=== PATIENT | female | born 2000 | race Caucasian/White ===

== ENCOUNTER 2018-06-22 08:26 | Inpatient (IN) | payer OTHER ==
[2018-06-22] MEDS ORDERED: MISOPROSTOL 200 MCG TAB PR (08:30)
[2018-06-22] MEDS ORDERED: BUTORPHANOL 2 MG INJ IV (08:30)
[2018-06-22] MEDS ORDERED: LIDOCAINE 1% (MPF) 30 ML INJ INJ (08:30)
[2018-06-22] MEDS ORDERED: CARBOPROST 250 MCG INJ IM (08:30)
[2018-06-22] MEDS ORDERED: BUTORPHANOL 1 MG INJ IV (08:30)
[2018-06-22] MEDS ORDERED: AMPICILLIN 2 GM/NS (PMX) 100 ML (08:36)
[2018-06-22] MEDS ORDERED: LIDOCAINE 0.5% (SDV) 50 ML INJ (08:37)
[2018-06-22] MEDS: METHYLERGONOVINE 0.2 MG INJ IM (09:47)
[2018-06-22] MEDS: OXYTOCIN 30 UNITS/LR 500 ML IV ×3 (09:52→11:50)
[2018-06-22] MEDS: LACTATED RINGER'S 1,000 ML IV* ×2 (09:55→16:30)
[2018-06-22] MEDS: IBUPROFEN 600 MG TAB PO ×4 (10:39→23:32)
[2018-06-22 10:59] LABS: ADD MAN DIFF? NO
[2018-06-22 11:00] LABS: BASOPHILS % 0.6 % (0.0-2.0); HEMATOCRIT 30.4 % (37.0-47.0); HEMOGLOBIN 9.1 g/dl (12.0-16.0); LYMPHOCYTES # 0.9 10^3/ul (0.8-2.9); LYMPHOCYTES % 18.3 % (18.0-55.0); MEAN CORPUSCULAR HEMOGLOBIN 21.6 pg (29.0-33.0); MEAN CORPUSCULAR HGB CONC 29.9 g/dl (32.0-37.0); MEAN CORPUSCULAR VOLUME 72.2 fl (72.0-104.0); MEAN PLATELET VOLUME 9.8 fl (7.4-10.4); MONOCYTE # 0.5 10^3/ul (0.3-0.9); MONOCYTES % 9.7 % (0.0-13.0); NEUTROPHIL # 3.5 10^3/ul (1.6-7.5); NEUTROPHILS % 70.4 % (30.0-74.0); PLATELET COUNT 355 10^3/UL (140-415); RED BLOOD COUNT 4.21 10^6/ul (4.20-5.40); RED CELL DISTRIBUTION WIDTH 19.9 % (11.5-14.5)
[2018-06-22 11:07] LABS: POSITIVE DIFF @See below
[2018-06-22 11:19] LABS: ALANINE AMINOTRANSFERASE 21 IU/L (13-69); ALBUMIN 2.6 g/dl (3.3-4.9); ALBUMIN/GLOBULIN RATIO 0.81; ALKALINE PHOSPHATASE 276 IU/L (42-121); ANION GAP 10 (8-16); ASPARTATE AMINO TRANSFERASE 22 IU/L (15-46); BILIRUBIN,INDIRECT 0.1 mg/dl (0-1.1); BILIRUBIN,TOTAL 0.1 mg/dl (0.2-1.3); BLOOD UREA NITROGEN 6 mg/dl (7-20); CALCIUM 8.9 mg/dl (8.4-10.2); CARBON DIOXIDE 25 mmol/L (21-31); CHLORIDE 104 mmol/L (97-110); CREATININE 0.37 mg/dl (0.44-1.00); GLUCOSE 113 mg/dl (70-220); POTASSIUM 4.3 mmol/L (3.5-5.1); SODIUM 135 mmol/L (135-144); TOTAL PROTEIN 5.8 g/dl (6.1-8.1); URIC ACID 4.4 mg/dl (3.1-7.9)
[2018-06-22 11:21] LABS: INR 0.93; PROTIME 12.6 Sec (11.9-14.9)
[2018-06-22 11:22] LABS: PARTIAL THROMBOPLASTIN TIME 27.8 Sec (23.0-35.0)
[2018-06-22] MEDS ORDERED: OXYCODONE/ASPIRIN (4.88/325) TAB PO ×2 (12:00)
[2018-06-22] MEDS ORDERED: ONDANSETRON 4 MG INJ IV (12:00)
[2018-06-22] MEDS ORDERED: HYDROCODONE/APAP (5/325) TAB PO ×2 (12:00)
[2018-06-22] MEDS ORDERED: AMPICILLIN 1 GM/NS (PMX) 50 ML IV (12:30)
[2018-06-22 12:49] LABS: HEPATITIS B SURFACE ANTIGEN NEGATIVE (NEGATIVE)
[2018-06-22] MEDS: AMPICILLIN 2 GM/NS (PMX) 100 ML IV (13:01)
[2018-06-22] MEDS: AMPICILLIN/SULB 3 GM/NS (PMX) 100 ML IVPB ×2 (13:06→18:26)
[2018-06-22 14:20] LABS: ADD UMIC YES; UR ASCORBIC ACID NEGATIVE (NEGATIVE); UR BACTERIA FEW /HPF (NONE SEEN); UR BILIRUBIN (Dip) NEGATIVE (NEGATIVE); UR BLOOD (Dip) 3+ mg/dL (NEGATIVE); UR CLARITY CLOUDY (CLEAR); UR COLOR RED (YELLOW); UR GLUCOSE (Dip) NEGATIVE (NEGATIVE); UR KETONES (Dip) TRACE mg/dL (NEGATIVE); UR LEUKOCYTE ESTERASE (Dip) NEGATIVE Leu/ul (NEGATIVE); UR NITRITE (Dip) NEGATIVE (NEGATIVE); UR RBC > 182 /HPF (0-5); UR SPECIFIC GRAVITY (Dip) 1.016 (1.003-1.030); UR TOTAL PROTEIN (Dip) 2+ mg/dl (NEGATIVE); UR UROBILINOGEN (Dip) NEGATIVE (NEGATIVE); UR WBC > 182 /HPF (0-5)
[2018-06-22 16:30] LABS: RAPID PLASMA REAGIN NONREACTIVE (NR)
[2018-06-22] MEDS: DIBUCAINE 1% 30 GM OINT PR (17:35)
[2018-06-22] MEDS: WITCH HAZEL/GLYCERIN PAD PR (17:35)
[2018-06-22] MEDS: LANOLIN 7 GM TUBE TOP (17:35)
[2018-06-22] MEDS: BENZOCAINE 20% 56 ML SPRAY TOP (17:35)
[2018-06-22] MEDS: SENNA/DOCUSATE NA (8.6MG/50MG) TAB PO (22:01)
[2018-06-23] MEDS: AMPICILLIN/SULB 3 GM/NS (PMX) 100 ML IVPB ×5 (00:48→23:28)
[2018-06-23] MEDS: IBUPROFEN 600 MG TAB PO ×4 (05:42→23:28)
[2018-06-23] MEDS: LACTATED RINGER'S 1,000 ML IV* ×3 (07:24→09:55)
[2018-06-23 08:29] LABS: ADD MAN DIFF? NO
[2018-06-23 08:34] LABS: ABNORMAL IP MESSAGE 1; BASOPHILS % 0.7 % (0.0-2.0); EOSINOPHILS % 0.7 % (0.0-7.0); HEMATOCRIT 21.4 % (37.0-47.0); LYMPHOCYTES # 1.2 10^3/ul (0.8-2.9); LYMPHOCYTES % 43.8 % (18.0-55.0); MEAN CORPUSCULAR HEMOGLOBIN 21.5 pg (29.0-33.0); MEAN CORPUSCULAR HGB CONC 29.4 g/dl (32.0-37.0); MEAN PLATELET VOLUME 10.4 fl (7.4-10.4); MONOCYTE # 0.6 10^3/ul (0.3-0.9); MONOCYTES % 20.8 % (0.0-13.0); NEUTROPHIL # 0.9 10^3/ul (1.6-7.5); NEUTROPHILS % 32.9 % (30.0-74.0); NUCLEATED RED BLOOD CELLS% 0.7 /100WBC (0.0-0.0); PLATELET COUNT 259 10^3/UL (140-415); RED BLOOD COUNT 2.93 10^6/ul (4.20-5.40); RED CELL DISTRIBUTION WIDTH 20.1 % (11.5-14.5)
[2018-06-23 08:34] LABS: WHITE BLOOD COUNT 2.8 10^3/ul (4.8-10.8)
[2018-06-23 08:46] LABS: POSITIVE DIFF @See below
[2018-06-23 08:49] LABS: HEMOGLOBIN 6.3 g/dl (12.0-16.0)
[2018-06-23 09:39] LABS: ANISOCYTOSIS 3+ (0-0); BAND NEUTROPHILS #M 0.2 10^3/ul (0.0-0.6); BAND NEUTROPHILS % (M) 9 % (0-10); EOSINOPHILS % (M) 2 % (0-7); GIANT THROMBO% (M) 1 % (0-0); LYMPHOCYTES #M 1.3 10^3/ul (0.8-2.9); LYMPHOCYTES % (M) 48 % (18-55); MICROCYTOSIS 3+ (0-0); MONOCYTE #M 0.5 10^3/ul (0.3-0.9); MONOCYTES % (M) 18 % (0-13); PLATELET ESTIMATE NORMAL; POLYCHROMASIA 1+ (0-0); SEG NEUT #M 0.6 10^3/ul (1.6-7.5); SEGMENTED NEUTROPHILS (M) % 23 % (30-74); SMUDGE%M 38 % (0-0)
[2018-06-23] MEDS: SENNA/DOCUSATE NA (8.6MG/50MG) TAB PO ×2 (09:55→21:57)
[2018-06-23] MEDS: HETASTARCH 6% NACL 500 ML BAG IV* (13:06)
[2018-06-23 13:19] LABS: LACTIC ACID 1.7 mmol/L (0.5-2.0)
[2018-06-23] MEDS: SOD CHLORIDE 0.9% 1,000 ML IV ×2 (14:13→21:00)
[2018-06-23 18:38] LABS: WHITE BLOOD COUNT 2.4 10^3/ul (4.8-10.8)
[2018-06-23 18:38] LABS: ABNORMAL IP MESSAGE 1; HEMATOCRIT 19.7 % (37.0-47.0); MEAN CORPUSCULAR HEMOGLOBIN 21.8 pg (29.0-33.0); MEAN CORPUSCULAR HGB CONC 29.4 g/dl (32.0-37.0); MEAN CORPUSCULAR VOLUME 74.1 fl (72.0-104.0); MEAN PLATELET VOLUME 9.8 fl (7.4-10.4); NUCLEATED RED BLOOD CELLS% 1.2 /100WBC (0.0-0.0); PLATELET COUNT 243 10^3/UL (140-415); RED BLOOD COUNT 2.66 10^6/ul (4.20-5.40); RED CELL DISTRIBUTION WIDTH 19.9 % (11.5-14.5)
[2018-06-23 18:45] LABS: POSITIVE DIFF @See below
[2018-06-23 18:47] LABS: HEMOGLOBIN 5.8 g/dl (12.0-16.0)
[2018-06-23 18:48] LABS: ADD MAN DIFF? YES
[2018-06-23 19:25] LABS: ANISOCYTOSIS 2+ (0-0); BAND NEUTROPHILS #M 0.2 10^3/ul (0.0-0.6); BAND NEUTROPHILS % (M) 10 % (0-10); EOSINOPHILS % (M) 1 % (0-7); ERYTHROBLAST% (NRBC) (M) 1 % (0-0); LYMPHOCYTES #M 1.3 10^3/ul (0.8-2.9); LYMPHOCYTES % (M) 57 % (18-55); MICROCYTOSIS 2+ (0-0); MONOCYTE #M 0.2 10^3/ul (0.3-0.9); MONOCYTES % (M) 10 % (0-13); PLATELET ESTIMATE NORMAL; POIKILOCYTOSIS 1+ (0-0); POLYCHROMASIA 2+ (0-0); SEG NEUT #M 0.5 10^3/ul (1.6-7.5); SEGMENTED NEUTROPHILS (M) % 21 % (30-74); SMUDGE%M 21 % (0-0)
[2018-06-23] MEDS: ACETAMINOPHEN 325 MG TAB PO (21:57)
[2018-06-24] MEDS: LACTATED RINGER'S 1,000 ML IV* ×3 (00:30→16:30)
[2018-06-24 00:42] LABS: IMMEDIATE SPIN CROSSMATCH 1 1
[2018-06-24] MEDS: SOD CHLORIDE 0.9% 1,000 ML IV ×2 (05:00→13:00)
[2018-06-24] MEDS: AMPICILLIN/SULB 3 GM/NS (PMX) 100 ML IVPB ×3 (05:27→17:46)
[2018-06-24] MEDS: IBUPROFEN 600 MG TAB PO ×3 (05:27→17:46)
[2018-06-24 07:18] LABS: ADD MAN DIFF? NO
[2018-06-24 07:22] LABS: WHITE BLOOD COUNT 2.7 10^3/ul (4.8-10.8)
[2018-06-24 07:22] LABS: ABNORMAL IP MESSAGE 1; BASOPHILS % 1.1 % (0.0-2.0); EOSINOPHILS # 0.1 10^3/ul (0.0-0.5); EOSINOPHILS % 1.9 % (0.0-7.0); HEMATOCRIT 25.4 % (37.0-47.0); HEMOGLOBIN 7.8 g/dl (12.0-16.0); LYMPHOCYTES # 1.2 10^3/ul (0.8-2.9); LYMPHOCYTES % 44.1 % (18.0-55.0); MEAN CORPUSCULAR HEMOGLOBIN 23.6 pg (29.0-33.0); MEAN CORPUSCULAR HGB CONC 30.7 g/dl (32.0-37.0); MONOCYTE # 0.4 10^3/ul (0.3-0.9); MONOCYTES % 15.6 % (0.0-13.0); NEUTROPHIL # 0.9 10^3/ul (1.6-7.5); NEUTROPHILS % 33.2 % (30.0-74.0); NUCLEATED RED BLOOD CELLS # 0.1 10^3/ul (0.0-0.0); NUCLEATED RED BLOOD CELLS% 1.9 /100WBC (0.0-0.0); PLATELET COUNT 240 10^3/UL (140-415); RED CELL DISTRIBUTION WIDTH 21.2 % (11.5-14.5)
[2018-06-24 07:33] LABS: POSITIVE DIFF @See below
[2018-06-24] MEDS: MEASLES,MUMPS,RUBELLA VACCINE INJ SC* (07:47)
[2018-06-24] MEDS: SENNA/DOCUSATE NA (8.6MG/50MG) TAB PO ×2 (08:52→20:19)
[2018-06-25] MEDS: AMPICILLIN/SULB 3 GM/NS (PMX) 100 ML IVPB ×4 (00:15→17:47)
[2018-06-25] MEDS: IBUPROFEN 600 MG TAB PO ×4 (00:15→17:47)
[2018-06-25 08:23] LABS: ADD MAN DIFF? NO
[2018-06-25 08:25] LABS: WHITE BLOOD COUNT 2.4 10^3/ul (4.8-10.8)
[2018-06-25 08:25] LABS: ABNORMAL IP MESSAGE 1; BASOPHIL # 0.1 10^3/ul (0.0-0.1); BASOPHILS % 2.1 % (0.0-2.0); EOSINOPHILS # 0.1 10^3/ul (0.0-0.5); EOSINOPHILS % 2.1 % (0.0-7.0); HEMATOCRIT 26.6 % (37.0-47.0); HEMOGLOBIN 8.1 g/dl (12.0-16.0); LYMPHOCYTES # 1.1 10^3/ul (0.8-2.9); LYMPHOCYTES % 46.9 % (18.0-55.0); MEAN CORPUSCULAR HEMOGLOBIN 23.8 pg (29.0-33.0); MEAN CORPUSCULAR HGB CONC 30.5 g/dl (32.0-37.0); MEAN PLATELET VOLUME 9.4 fl (7.4-10.4); MONOCYTE # 0.4 10^3/ul (0.3-0.9); MONOCYTES % 16.9 % (0.0-13.0); NEUTROPHIL # 0.7 10^3/ul (1.6-7.5); NEUTROPHILS % 27.1 % (30.0-74.0); NUCLEATED RED BLOOD CELLS% 1.2 /100WBC (0.0-0.0); PLATELET COUNT 275 10^3/UL (140-415); RED BLOOD COUNT 3.41 10^6/ul (4.20-5.40); RED CELL DISTRIBUTION WIDTH 21.1 % (11.5-14.5)
[2018-06-25 08:26] LABS: POSITIVE DIFF @See below
[2018-06-25] MEDS: SENNA/DOCUSATE NA (8.6MG/50MG) TAB PO (09:07)
== END 2018-06-25 20:40 | disposition home or self-care (01) | DRG 806 ==
LOC: OBT 08:26 → L-D 08:26 → OBT 08:27 → L-D 08:27 → PP1 13:02
PROC: 10E0XZZ Delivery of Products of Conception, External Approach (ICD-10-PCS; principal; 2018-06-22)
PROC: 0HQ9XZZ Repair Perineum Skin, External Approach (ICD-10-PCS; 2018-06-22)
PROC: 30233N1 Transfusion of Nonautologous Red Blood Cells into Peripheral Vein, Percutaneous Approach (ICD-10-PCS; 2018-06-23)
DX: O70.0 First degree perineal laceration during delivery (principal); O99.13 Other diseases of the blood and blood-forming organs and certain disorders involving the immune mechanism complicating the puerperium; D72.819 Decreased white blood cell count, unspecified; O99.02 Anemia complicating childbirth; D64.9 Anemia, unspecified; Z3A.38 38 weeks gestation of pregnancy; Z37.0 Single live birth
CPT/HCPCS: 36430; 80053; 81001; 82962; 83605; 84560; 85025; 85384; 85610; 85730; 86592; 86850; 86870; 86900; 86901; 86920; 87086; 87340; 93005